=== PATIENT | male | born 1965 | race American Indian/Alaskan Native ===

== ENCOUNTER 2017-03-10 13:05 | Emergency (ER) | payer OTHER ==
[2017-03-10 13:09] VITALS: BP 122/83
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
[2017-03-10] MEDS ORDERED: MOTRIN PO ONE (16:09)
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
== END 2017-03-10 19:35 | disposition left against medical advice (07) ==
LOC: ED 13:05
DX: M54.2 Cervicalgia (principal); M54.5 Low back pain; Z53.21 Procedure and treatment not carried out due to patient leaving prior to being seen by health care provider
CPT/HCPCS: 72040; 72070; 72100